=== PATIENT | male | born 1930 | race Caucasian/White ===

== ENCOUNTER → 2017-03-11 | Outpatient (CLI) | payer OTHER ==
[~2017-03-11] MED LIST: AML5T PO; BUSP10TA90 PO; CEPH500C PO; CLIN150C PO; CYCL1TAB18 PO; FLUO20CA19 PO; FURO40TA4 PO; GABA100C9 PO; GLIP-116 OR; GLIP-116 PO; LORA-622 PO; MELO1TAB73 OR; METF-370 PO; METR-103 PO; NOR7.5T PO; PRAV20TA3 PO; RANI-229 OR; RANI1TAB6 PO; TERA1CAP33 OR; TERA2CAP45 PO; TRAM50TA2 OR; WARF6TAB21 PO; WARF7.5T20 PO
== END | disposition home or self-care (01) ==
LOC: MERGE 15:06 → LAB 15:06
PROVIDERS: ATTEND Physician Assistant
DX: E11.21 Type 2 diabetes mellitus with diabetic nephropathy (principal)
CPT/HCPCS: 36415; 83036

== ENCOUNTER 2017-03-27 05:13 | Inpatient (IN) | payer OTHER ==
[~2017-03-27] VITALS: Ht 182.9 cm; Wt 130.7 kg
[~2017-03-27 05:13] MED LIST changes: -GABA100C9 PO; -GLIP-116 PO; -METF-370 PO; -RANI1TAB6 PO; -TERA2CAP45 PO; -WARF7.5T20 PO
[2017-03-27] MEDS ORDERED: IPRATROPIUM BROM 0.5 MG/2.5ML INH SOL NEB ONE (05:30)
[2017-03-27] MEDS ORDERED: methylPREDNISolone SOD SUCC 125 MG/2 ML VL IV ONE (05:30)
[2017-03-27] MEDS ORDERED: ALBUTEROL SULF 2.5 MG/0.5ML(0.5%) NEB SOLN NEB ONE (05:30)
[2017-03-27 05:52] LABS: Basophils # (auto) 0.1 uL; Basophils % (auto) 0.7 % (0.0-2.0); Eosinophils # (auto) 0.1 uL; Eosinophils % (auto) 1.4 % (0.0-7.0); Hemoglobin 11.6 g/dL (13.5-17.5); Lymphocytes # (auto) 2.6 uL; Lymphocytes % (auto) 25.6 % (10.0-50.0); Mean Corpuscular Hemoglobin 31.6 pg (28.0-32.0); Mean Corpuscular Hgb Conc. 33.2 g/dL (32.0-36.0); Monocytes # (auto) 1.1 uL; Monocytes % (auto) 11.1 % (0.0-12.0); Neutrophils # (auto) 6.3 uL; Neutrophils % (auto) 61.2 % (37.0-80.0); Nucleated Red Blood Cells % 0.1 %; Red Blood Cells 3.68 10^6/uL (4.5-5.90); Red Cell Distribution Width 15.1 % (11.8-14.3); White Blood Cell 10.2 10^3/uL (4.4-10.8)
[2017-03-27 06:19] LABS: BUN/Creatinine Ratio 16.4; Calcium 8.6 mg/dL (8.5-10.1); Potassium 4.6 mmol/L (3.5-5.1)
[2017-03-27 06:36] LABS: Bilirubin, Total 0.9 mg/dL (0.2-1.0); Total Protein 6.2 g/dL (6.4-8.2)
[2017-03-27] MEDS ORDERED: ENOXAPARIN SOD 100 MG/1 ML SYRINGE SC ONE (07:30)
[2017-03-27] MEDS ORDERED: FURO40TA4 PO (07:47)
[2017-03-27] MEDS ORDERED: AML5T PO (07:47)
[2017-03-27] MEDS ORDERED: TERA2CAP45 PO (07:47)
[2017-03-27] MEDS ORDERED: GABA100C9 PO ×2 (07:47)
[2017-03-27] MEDS ORDERED: BUSP10TA90 PO (07:47)
[2017-03-27] MEDS ORDERED: FLUO20CA19 PO (07:47)
[2017-03-27] MEDS ORDERED: WARF7.5T20 PO (07:47)
[2017-03-27] MEDS ORDERED: RANI1TAB6 PO (07:47)
[2017-03-27] MEDS ORDERED: PRAV20TA3 PO (07:47)
[2017-03-27] MEDS ORDERED: METF-370 PO (07:47)
[2017-03-27] MEDS ORDERED: GLIP-116 PO (07:47)
[2017-03-27] MEDS ORDERED: FUROSEMIDE 40 MG/4 ML VIAL IV ONE ×2 (08:15→10:45)
[2017-03-27 08:49] LABS: Platelet Count (auto) 138 10^3/uL (140-450)
[2017-03-27] MEDS ORDERED: PROMETHAZINE HCL 25 MG/ML 1ML IV PRN (10:15)
[2017-03-27] MEDS ORDERED: ACETAMINOPHEN 500 MG TAB PO PRN (10:15)
[2017-03-27] MEDS ORDERED: NITROGLYCERIN 0.4 MG SL TAB SL PRN (10:15)
[2017-03-27] MEDS ORDERED: DEXTROSE (50%) 50ML SYRG IV PRN (10:15)
[2017-03-27] MEDS ORDERED: MORPHINE SULFATE 4 MG/ML SYR/VIAL IV PRN (10:15)
[2017-03-27] MEDS ORDERED: LACTULOSE 20Gm/30ML SOLN PO PRN (10:15)
[2017-03-27] MEDS ORDERED: TEMAZEPAM 15 MG CAP PO PRN (10:15)
[2017-03-27] MEDS ORDERED: ALBUTEROL SULF 2.5 MG/0.5ML(0.5%) NEB SOLN NEB PRN (10:15)
[2017-03-27] MEDS ORDERED: LORazepam 0.5 MG TAB PO PRN (10:15)
[2017-03-27 10:34] VITALS: BP 126/76
[2017-03-27] MEDS ORDERED: PANTOPRAZOLE 40 MG TAB PO ONE (10:45)
[2017-03-27] MEDS ORDERED: GABAPENTIN 100 MG CAP PO ONE (10:45)
[2017-03-27] MEDS: glipiZIDE 5 MG TAB PO SCH ×4 (10:45→21:55)
[2017-03-27] MEDS ORDERED: ENALAPRIL MALEATE 2.5 MG TAB PO ONE (10:45)
[2017-03-27] MEDS ORDERED: FLUoxetine HCL 20 MG CAP PO ONE (10:45)
[2017-03-27] MEDS ORDERED: glipiZIDE 5 MG TAB PO ONE (10:45)
[2017-03-27] MEDS: TERAZOSIN HCL 1 MG CAP PO SCH (10:45)
[2017-03-27] MEDS ORDERED: busPIRone HCL 10 MG TAB PO ONE (10:45)
[2017-03-27] MEDS ORDERED: NITROGLYCERIN 0.2MG/HR TOPICAL PATCH TD ONE (10:45)
[2017-03-27 10:47] LABS: INR 1.04 (0.9-1.15); Prothrombin Time 11.3 sec (9.37-12.3)
[2017-03-27] MEDS ORDERED: LIDOCAINE 2%HCL (LOCAL ANESTH.) INJ 20ML MDV ONE (11:01)
[2017-03-27] MEDS ORDERED: IODIXANOL 320MG/ML 100ML BTL IV ONE ×2 (11:05→13:51)
[2017-03-27] MEDS: ASPirin 81 mg TAB PO ONE ×2 (11:08→11:19)
[2017-03-27] MEDS: CARVEDILOL 3.125 MG TAB PO ONE ×2 (11:13→11:19)
[2017-03-27] MEDS: InsuLIN REG 1unit/0.01ml Soln (100units/ml) SC SCH ×3 (11:30→22:00)
[2017-03-27] MEDS: ACCU-CHEK COMFORT CURVE STRIP VI SCH ×3 (11:39→22:01)
[2017-03-27 11:55] LABS: Urine Bacteria FEW /hpf (None Seen); Urine Blood Negative /uL (Negative); Urine Mucus FEW (None Seen); Urine Specific Gravity 1.024 (1.001-1.035); Urine WBC 2 /hpf (0 - 3)
[2017-03-27] MEDS ORDERED: ALBUTEROL SULF 2.5 MG/0.5ML(0.5%) NEB SOLN NEB SCH (12:00)
[2017-03-27] MEDS ORDERED: IPRATROPIUM BROM 0.5 MG/2.5ML INH SOL NEB SCH (12:00)
[2017-03-27] MEDS ORDERED: fentaNYL CITRATE 100 MCG/2 ML VL ONE ×2 (12:58→13:49)
[2017-03-27] MEDS ORDERED: ANGIOMAX 250 MG VIAL IV ONE ×2 (12:58→13:44)
[2017-03-27] MEDS ORDERED: MIDAZOLAM HCL 1MG/1ML-2 ML VIAL ONE ×2 (12:58→13:50)
[2017-03-27] MEDS ORDERED: SODIUM CHL 0.9% 50 ML ONE ×2 (12:58→13:44)
[2017-03-27] MEDS ORDERED: VERAPAMIL 2.5MG/ML INJ 2ML VIAL IV ONE (13:05)
[2017-03-27] MEDS ORDERED: HEPARIN SODIUM (PORCINE) 5000 UNITS/ML 1ML VIAL ONE (13:11)
[2017-03-27] MEDS ORDERED: IOHEXOL 350 MG/ML 100ML IJ ONE (13:25)
[2017-03-27] MEDS ORDERED: CLOPIDOGREL 300 MG TAB ONE (13:43)
[2017-03-27] MEDS ORDERED: CLOPIDOGREL BISULFATE 75 MG TAB PO ONE (14:45)
[2017-03-27 16:00] VITALS: BP 139/82
[2017-03-27 16:01] LABS: Prothrombin Time 101.4 sec (9.37-12.3)
[2017-03-27] MEDS: SODIUM CHLOR 0.9% PF (SALINE LOCK) 10ML VIAL IV SCH ×2 (16:19→22:00)
[2017-03-27 16:24] LABS: INR 9.1 (0.9-1.15)
[2017-03-27 16:25] LABS: Partial Thromboplastin Time 142.4 sec (22.64-33.71)
[2017-03-27] MEDS ORDERED: WARFARIN SODIUM 10 MG TAB PO ONE (17:00)
[2017-03-27] MEDS ORDERED: PHYTONADIONE ORAL Susp 10 mg/10ml PO ONE (17:30)
[2017-03-27 18:11] LABS: INR 2.57 (0.9-1.15); Prothrombin Time 28.3 sec (9.37-12.3)
[2017-03-27] MEDS: GABAPENTIN 100 MG CAP PO SCH (21:56)
[2017-03-27] MEDS: ATORVASTATIN 20 MG TAB PO SCH (21:56)
[2017-03-27] MEDS: busPIRone HCL 10 MG TAB PO SCH (21:57)
[2017-03-27] MEDS: CARVEDILOL 3.125 MG TAB PO SCH (21:58)
[2017-03-27 22:00] VITALS: BP 108/57
[2017-03-27] MEDS ORDERED: ENOXAPARIN SOD 40 MG/0.4 ML SYRINGE SC SCH (22:00)
[2017-03-28] MEDS: InsuLIN REG 1unit/0.01ml Soln (100units/ml) SC SCH ×5 (01:06→21:16)
[2017-03-28 05:00] VITALS: BP 95/54
[2017-03-28 05:53] LABS: Basophils # (auto) 0 uL; Basophils % (auto) 0.2 % (0.0-2.0); Eosinophils # (auto) 0 uL; Eosinophils % (auto) 0.1 % (0.0-7.0); Hematocrit 32.7 % (41.0-53.0); Hemoglobin 11.1 g/dL (13.5-17.5); Lymphocytes % (auto) 10.8 % (10.0-50.0); Mean Corpuscular Hemoglobin 31.4 pg (28.0-32.0); Mean Corpuscular Hgb Conc. 33.9 g/dL (32.0-36.0); Mean Corpuscular Volume 92.7 fL (80.0-100.0); Monocytes % (auto) 10.6 % (0.0-12.0); Neutrophils % (auto) 78.3 % (37.0-80.0); Nucleated Red Blood Cells % 0.1 %; Platelet Count (auto) 145 10^3/uL (140-450); Red Blood Cells 3.53 10^6/uL (4.5-5.90); Red Cell Distribution Width 15.1 % (11.8-14.3)
[2017-03-28 05:58] LABS: INR 1.13 (0.9-1.15); Partial Thromboplastin Time 35.1 sec (22.64-33.71); Prothrombin Time 12.3 sec (9.37-12.3)
[2017-03-28 06:30] LABS: BUN/Creatinine Ratio 21.9; Bilirubin, Total 0.6 mg/dL (0.2-1.0); Calcium 8.5 mg/dL (8.5-10.1); Potassium 4.4 mmol/L (3.5-5.1); Total Protein 6.5 g/dL (6.4-8.2)
[2017-03-28] MEDS: FUROSEMIDE 40 MG/4 ML VIAL IV SCH ×2 (06:50→17:35)
[2017-03-28] MEDS: SODIUM CHLOR 0.9% PF (SALINE LOCK) 10ML VIAL IV SCH ×3 (06:51→21:26)
[2017-03-28] MEDS: glipiZIDE 5 MG TAB PO SCH ×4 (06:52→21:25)
[2017-03-28] MEDS: ACCU-CHEK COMFORT CURVE STRIP VI SCH ×4 (06:52→21:09)
[2017-03-28 08:26] VITALS: BP 120/67
[2017-03-28] MEDS: POTASSIUM CHL 20 Meq TABLET PO SCH (09:27)
[2017-03-28] MEDS: TERAZOSIN HCL 1 MG CAP PO SCH (09:27)
[2017-03-28] MEDS: CLOPIDOGREL BISULFATE 75 MG TAB PO SCH (09:28)
[2017-03-28] MEDS: GABAPENTIN 100 MG CAP PO SCH ×2 (09:28→21:24)
[2017-03-28] MEDS: busPIRone HCL 10 MG TAB PO SCH ×2 (09:29→21:26)
[2017-03-28] MEDS: CARVEDILOL 3.125 MG TAB PO SCH ×2 (09:29→21:25)
[2017-03-28] MEDS: ENALAPRIL MALEATE 2.5 MG TAB PO SCH (09:29)
[2017-03-28] MEDS: FLUoxetine HCL 20 MG CAP PO SCH ×2 (09:30→21:27)
[2017-03-28] MEDS: PANTOPRAZOLE 40 MG TAB PO SCH (09:30)
[2017-03-28] MEDS: ENOXAPARIN SOD 40 MG/0.4 ML SYRINGE SC SCH ×2 (09:30→21:28)
[2017-03-28] MEDS: ASPirin 81 mg TAB PO SCH (09:30)
[2017-03-28] MEDS: NITROGLYCERIN 0.2MG/HR TOPICAL PATCH TD SCH (09:31)
[2017-03-28 12:58] VITALS: BP 113/62
[2017-03-28 16:50] VITALS: BP 103/58
[2017-03-28] MEDS: ATORVASTATIN 20 MG TAB PO SCH (21:26)
[2017-03-28 22:00] VITALS: BP 117/69
[2017-03-29 05:00] VITALS: BP 105/53
[2017-03-29] MEDS: InsuLIN REG 1unit/0.01ml Soln (100units/ml) SC SCH ×4 (06:17→22:00)
[2017-03-29] MEDS: ACCU-CHEK COMFORT CURVE STRIP VI SCH ×4 (06:17→22:13)
[2017-03-29] MEDS: SODIUM CHLOR 0.9% PF (SALINE LOCK) 10ML VIAL IV SCH ×3 (06:29→21:59)
[2017-03-29] MEDS: FUROSEMIDE 40 MG/4 ML VIAL IV SCH ×2 (06:29→17:54)
[2017-03-29] MEDS: glipiZIDE 5 MG TAB PO SCH ×4 (06:30→22:09)
[2017-03-29 08:39] VITALS: BP 123/66
[2017-03-29] MEDS: CLOPIDOGREL BISULFATE 75 MG TAB PO SCH (10:05)
[2017-03-29] MEDS: ASPirin 81 mg TAB PO SCH (10:05)
[2017-03-29] MEDS: PANTOPRAZOLE 40 MG TAB PO SCH (10:05)
[2017-03-29] MEDS: POTASSIUM CHL 20 Meq TABLET PO SCH (10:05)
[2017-03-29] MEDS: FLUoxetine HCL 20 MG CAP PO SCH ×2 (10:05→21:58)
[2017-03-29] MEDS: busPIRone HCL 10 MG TAB PO SCH ×2 (10:05→22:01)
[2017-03-29] MEDS: GABAPENTIN 100 MG CAP PO SCH ×2 (10:05→22:00)
[2017-03-29] MEDS: TERAZOSIN HCL 1 MG CAP PO SCH (10:06)
[2017-03-29] MEDS: CARVEDILOL 3.125 MG TAB PO SCH ×2 (10:07→22:09)
[2017-03-29] MEDS: ENOXAPARIN SOD 40 MG/0.4 ML SYRINGE SC SCH ×2 (10:07→22:03)
[2017-03-29] MEDS: ENALAPRIL MALEATE 2.5 MG TAB PO SCH (10:07)
[2017-03-29] MEDS: NITROGLYCERIN 0.2MG/HR TOPICAL PATCH TD SCH (10:08)
[2017-03-29 12:00] VITALS: BP 107/64
[2017-03-29 17:32] VITALS: BP 98/50
[2017-03-29] MEDS: ATORVASTATIN 20 MG TAB PO SCH (21:59)
[2017-03-29 22:00] VITALS: BP 111/50
[2017-03-30] MEDS: HYDROcodone-ACET 5/325MG TAB PO PRN ×3 (03:45→16:50)
[2017-03-30 05:00] VITALS: BP 111/57
[2017-03-30] MEDS: glipiZIDE 5 MG TAB PO SCH ×4 (06:00→23:05)
[2017-03-30] MEDS: FUROSEMIDE 40 MG/4 ML VIAL IV SCH ×2 (06:00→17:52)
[2017-03-30] MEDS: SODIUM CHLOR 0.9% PF (SALINE LOCK) 10ML VIAL IV SCH ×3 (06:48→22:58)
[2017-03-30] MEDS: InsuLIN REG 1unit/0.01ml Soln (100units/ml) SC SCH ×4 (06:48→23:00)
[2017-03-30] MEDS: ACCU-CHEK COMFORT CURVE STRIP VI SCH ×4 (06:49→22:58)
[2017-03-30 07:45] VITALS: BP 98/48
[2017-03-30] MEDS: NITROGLYCERIN 0.2MG/HR TOPICAL PATCH TD SCH (10:00)
[2017-03-30] MEDS: TERAZOSIN HCL 1 MG CAP PO SCH (10:00)
[2017-03-30 10:30] VITALS: BP 173/96
[2017-03-30] MEDS ORDERED: IOHEXOL 350 MG/ML 100ML IJ ONE (11:10)
[2017-03-30] MEDS ORDERED: LIDOCAINE 2%HCL (LOCAL ANESTH.) INJ 20ML MDV ONE (11:10)
[2017-03-30] MEDS ORDERED: fentaNYL CITRATE 100 MCG/2 ML VL ONE (11:34)
[2017-03-30] MEDS ORDERED: MIDAZOLAM HCL 1MG/1ML-2 ML VIAL ONE (11:34)
[2017-03-30] MEDS ORDERED: ANGIOMAX 250 MG VIAL IV ONE (11:34)
[2017-03-30] MEDS ORDERED: SODIUM CHL 0.9% 50 ML ONE (11:34)
[2017-03-30] MEDS ORDERED: VERAPAMIL 2.5MG/ML INJ 2ML VIAL IV ONE (11:35)
[2017-03-30] MEDS ORDERED: IODIXANOL 320MG/ML 100ML BTL IV ONE (11:41)
[2017-03-30] MEDS: CLOPIDOGREL BISULFATE 75 MG TAB PO SCH (12:44)
[2017-03-30] MEDS: ASPirin 81 mg TAB PO SCH (12:44)
[2017-03-30] MEDS: CARVEDILOL 3.125 MG TAB PO SCH ×2 (13:18→22:57)
[2017-03-30] MEDS: ENALAPRIL MALEATE 2.5 MG TAB PO SCH (13:18)
[2017-03-30] MEDS: MORPHINE SULFATE 4 MG/ML SYR/VIAL IV PRN (15:07)
[2017-03-30 15:50] VITALS: BP 137/68
[2017-03-30] MEDS: PANTOPRAZOLE 40 MG TAB PO SCH (16:44)
[2017-03-30] MEDS: busPIRone HCL 10 MG TAB PO SCH ×2 (16:44→22:57)
[2017-03-30] MEDS: POTASSIUM CHL 20 Meq TABLET PO SCH (16:44)
[2017-03-30] MEDS: GABAPENTIN 100 MG CAP PO SCH ×2 (16:44→22:56)
[2017-03-30] MEDS: FLUoxetine HCL 20 MG CAP PO SCH ×2 (16:44→22:58)
[2017-03-30 22:05] VITALS: BP 116/57
[2017-03-30] MEDS: ATORVASTATIN 20 MG TAB PO SCH (22:57)
[2017-03-31 04:50] VITALS: BP 124/64
[2017-03-31] MEDS: SODIUM CHLOR 0.9% PF (SALINE LOCK) 10ML VIAL IV SCH ×3 (06:10→21:18)
[2017-03-31] MEDS: glipiZIDE 5 MG TAB PO SCH ×4 (06:10→21:50)
[2017-03-31] MEDS: InsuLIN REG 1unit/0.01ml Soln (100units/ml) SC SCH ×4 (06:11→21:51)
[2017-03-31] MEDS: ACCU-CHEK COMFORT CURVE STRIP VI SCH ×4 (06:11→21:18)
[2017-03-31] MEDS: HYDROcodone-ACET 5/325MG TAB PO PRN ×3 (06:15→20:50)
[2017-03-31] MEDS: FUROSEMIDE 40 MG/4 ML VIAL IV SCH ×2 (06:15→09:33)
[2017-03-31] MEDS: MORPHINE SULFATE 4 MG/ML SYR/VIAL IV PRN ×3 (07:32→15:08)
[2017-03-31 08:07] VITALS: BP 123/61
[2017-03-31] MEDS: TERAZOSIN HCL 1 MG CAP PO SCH (09:34)
[2017-03-31] MEDS: GABAPENTIN 100 MG CAP PO SCH ×2 (09:34→21:51)
[2017-03-31] MEDS: CLOPIDOGREL BISULFATE 75 MG TAB PO SCH (09:34)
[2017-03-31] MEDS: ENALAPRIL MALEATE 2.5 MG TAB PO SCH (09:36)
[2017-03-31] MEDS: FLUoxetine HCL 20 MG CAP PO SCH ×2 (09:36→21:51)
[2017-03-31] MEDS: POTASSIUM CHL 20 Meq TABLET PO SCH (09:36)
[2017-03-31] MEDS: ASPirin 81 mg TAB PO SCH (09:36)
[2017-03-31] MEDS: busPIRone HCL 10 MG TAB PO SCH ×2 (09:36→21:50)
[2017-03-31] MEDS: CARVEDILOL 3.125 MG TAB PO SCH ×2 (09:36→21:34)
[2017-03-31] MEDS: PANTOPRAZOLE 40 MG TAB PO SCH (09:36)
[2017-03-31] MEDS: NITROGLYCERIN 0.2MG/HR TOPICAL PATCH TD SCH (09:37)
[2017-03-31 11:51] VITALS: BP 100/48
[2017-03-31] MEDS ORDERED: CARISOPRODOL 350 MG TAB PO PRN (13:15)
[2017-03-31 16:09] VITALS: BP 90/60
[2017-03-31] MEDS: ATORVASTATIN 20 MG TAB PO SCH (21:50)
[2017-03-31 21:55] VITALS: BP 109/65
[2017-04-01] MEDS: SODIUM CHLOR 0.9% PF (SALINE LOCK) 10ML VIAL IV SCH ×2 (04:58→14:00)
[2017-04-01 05:24] VITALS: BP 104/45
[2017-04-01] MEDS: FUROSEMIDE 40 MG/4 ML VIAL IV SCH (05:31)
[2017-04-01] MEDS: glipiZIDE 5 MG TAB PO SCH ×2 (06:00→12:00)
[2017-04-01] MEDS: InsuLIN REG 1unit/0.01ml Soln (100units/ml) SC SCH ×2 (06:08→12:49)
[2017-04-01] MEDS: ACCU-CHEK COMFORT CURVE STRIP VI SCH ×2 (06:08→12:49)
[2017-04-01 09:00] VITALS: BP 97/58
[2017-04-01] MEDS: POTASSIUM CHL 20 Meq TABLET PO SCH (09:16)
[2017-04-01] MEDS: ENALAPRIL MALEATE 2.5 MG TAB PO SCH (09:17)
[2017-04-01] MEDS: GABAPENTIN 100 MG CAP PO SCH (09:17)
[2017-04-01] MEDS: CLOPIDOGREL BISULFATE 75 MG TAB PO SCH (09:18)
[2017-04-01] MEDS: FLUoxetine HCL 20 MG CAP PO SCH (09:18)
[2017-04-01] MEDS: PANTOPRAZOLE 40 MG TAB PO SCH (09:18)
[2017-04-01] MEDS: TERAZOSIN HCL 1 MG CAP PO SCH (09:19)
[2017-04-01] MEDS: busPIRone HCL 10 MG TAB PO SCH (09:19)
[2017-04-01] MEDS: ASPirin 81 mg TAB PO SCH (09:19)
[2017-04-01] MEDS: CARVEDILOL 3.125 MG TAB PO SCH (09:20)
[2017-04-01] MEDS: NITROGLYCERIN 0.2MG/HR TOPICAL PATCH TD SCH (10:00)
[2017-04-01 12:00] VITALS: BP_SYST 122; BP_SYST 97; BP_DIAS 58; BP_DIAS 59
== END 2017-04-01 14:30 | disposition home health service (06) | DRG 246 ==
LOC: EDBD 05:13 → ER 05:15 → TELE 05:16 → MERGE 05:16 → TELE-EAST 16:00
PROVIDERS: ADMIT Internal Medicine; ATTEND Family Medicine
PROC: 5A09357 Assistance with Respiratory Ventilation, Less than 24 Consecutive Hours, Continuous Positive Airway Pressure (ICD-10-PCS; principal; 2017-03-27)
PROC: 027136Z Dilation of Coronary Artery, Two Arteries with Three Drug-eluting Intraluminal Devices, Percutaneous Approach (ICD-10-PCS; 2017-03-27)
PROC: 4A023N7 Measurement of Cardiac Sampling and Pressure, Left Heart, Percutaneous Approach (ICD-10-PCS; 2017-03-27)
PROC: B2111ZZ Fluoroscopy of Multiple Coronary Arteries using Low Osmolar Contrast (ICD-10-PCS; 2017-03-27)
PROC: B2151ZZ Fluoroscopy of Left Heart using Low Osmolar Contrast (ICD-10-PCS; 2017-03-27)
PROC: 027035Z Dilation of Coronary Artery, One Artery with Two Drug-eluting Intraluminal Devices, Percutaneous Approach (ICD-10-PCS; 2017-03-30)
DX: I21.4 Non-ST elevation (NSTEMI) myocardial infarction (principal); J96.00 Acute respiratory failure, unspecified whether with hypoxia or hypercapnia; I50.21 Acute systolic (congestive) heart failure; I13.0 Hypertensive heart and chronic kidney disease with heart failure and stage 1 through stage 4 chronic kidney disease, or unspecified chronic kidney disease; D63.8 Anemia in other chronic diseases classified elsewhere; E11.21 Type 2 diabetes mellitus with diabetic nephropathy; E11.22 Type 2 diabetes mellitus with diabetic chronic kidney disease; E11.42 Type 2 diabetes mellitus with diabetic polyneuropathy; E66.9 Obesity, unspecified; E78.00 Pure hypercholesterolemia, unspecified; F32.9 Major depressive disorder, single episode, unspecified; I25.10 Atherosclerotic heart disease of native coronary artery without angina pectoris; N18.9 Chronic kidney disease, unspecified; I08.0 Rheumatic disorders of both mitral and aortic valves; N40.0 Benign prostatic hyperplasia without lower urinary tract symptoms; Z79.01 Long term (current) use of anticoagulants; Z68.39 Body mass index [BMI] 39.0-39.9, adult; Z79.4 Long term (current) use of insulin; Z86.711 Personal history of pulmonary embolism; Z86.718 Personal history of other venous thrombosis and embolism; Z95.0 Presence of cardiac pacemaker; Z79.899 Other long term (current) drug therapy
CPT/HCPCS: 36415; 36600; 51702; 71045; 80053; 81001; 82550; 82805; 82962; 83036; 83880; 84443; 84484; 85025; 85379; 85610; 85652; 85730; 86141; 86850; 86870; 86900; 86901; 92928; 93005; 93306; 93458; 93970; 94640; 94660; 96361; 96374; 96375; 99152; 99153; C1874; C1887; J1815; J2250; Q9967

== ENCOUNTER → 2018-02-24 | Outpatient (CLI) | payer OTHER ==
[~2018-02-24] MED LIST changes: +GABA100C9 PO; +GLIP-116 PO; +METF-370 PO; +RANI1TAB6 PO; +TERA2CAP45 PO; +WARF7.5T20 PO
[2018-02-24 10:29] LABS: Basophils # (auto) 0 uL; Basophils % (auto) 0.4 % (0.0-2.0); Eosinophils # (auto) 0.2 uL; Eosinophils % (auto) 4.7 % (0.0-7.0); Hematocrit 38.2 % (41.0-53.0); Hemoglobin 12.8 g/dL (13.5-17.5); Lymphocytes % (auto) 19.2 % (10.0-50.0); Mean Corpuscular Hemoglobin 31.1 pg (28.0-32.0); Mean Corpuscular Hgb Conc. 33.4 g/dL (32.0-36.0); Mean Corpuscular Volume 93.1 fL (80.0-100.0); Monocytes # (auto) 0.5 uL; Monocytes % (auto) 9.7 % (0.0-12.0); Neutrophils # (auto) 3.4 uL; Platelet Count (auto) 146 10^3/uL (140-450); Red Cell Distribution Width 15.3 % (11.8-14.3); White Blood Cell 5.2 10^3/uL (4.4-10.8)
[2018-02-24 10:45] LABS: Urine Bacteria NONE SEEN /hpf (None Seen); Urine Blood TRACE /uL (Negative); Urine Mucus FEW (None Seen); Urine Specific Gravity 1.021 (1.001-1.035); Urine WBC <1 /hpf (0 - 3)
[2018-02-24 10:52] LABS: Potassium 4.8 mmol/L (3.5-5.1)
[2018-02-24 11:07] LABS: Albumin 3.5 g/dL (3.4-5.0); BUN/Creatinine Ratio 21.2; Bilirubin, Total 0.7 mg/dL (0.2-1.0); Calcium 9.3 mg/dL (8.5-10.1); Total Protein 6.9 g/dL (6.4-8.2)
== END | disposition home or self-care (01) ==
LOC: LAB 09:45
PROVIDERS: ATTEND Physician Assistant
CPT/HCPCS: 36415; 80053; 80061; 81001; 83036; 84153; 85025

== ENCOUNTER 2018-04-07 14:05 | Inpatient (IN) | payer OTHER ==
[~2018-04-07] VITALS: Ht 180.3 cm; Wt 131.3 kg
[2018-04-07] MEDS ORDERED: SODIUM CHLORIDE 0.9% 1,000 ML IV ONE (16:39)
[2018-04-07 16:54] LABS: Basophils # (auto) 0 uL; Basophils % (auto) 0.3 % (0.0-2.0); Eosinophils # (auto) 0.2 uL; Eosinophils % (auto) 3.3 % (0.0-7.0); Hematocrit 36.2 % (41.0-53.0); Hemoglobin 12.1 g/dL (13.5-17.5); Lymphocytes # (auto) 1.1 uL; Mean Corpuscular Hemoglobin 31.5 pg (28.0-32.0); Mean Corpuscular Hgb Conc. 33.4 g/dL (32.0-36.0); Mean Corpuscular Volume 94.4 fL (80.0-100.0); Monocytes # (auto) 0.7 uL; Monocytes % (auto) 13.8 % (0.0-12.0); Neutrophils # (auto) 3.3 uL; Neutrophils % (auto) 62.6 % (37.0-80.0); Nucleated Red Blood Cells % 0.1 %; Platelet Count (auto) 156 10^3/uL (140-450); Red Blood Cells 3.83 10^6/uL (4.5-5.90); Red Cell Distribution Width 15.3 % (11.8-14.3); White Blood Cell 5.4 10^3/uL (4.4-10.8)
[2018-04-07 17:09] LABS: Albumin 3.5 g/dL (3.4-5.0); Calcium 8.6 mg/dL (8.5-10.1); Magnesium 2.2 mg/dL (1.6-2.6); Potassium 4.7 mmol/L (3.5-5.1)
[2018-04-07 17:15] LABS: BUN/Creatinine Ratio 17.7; Bilirubin, Total 0.5 mg/dL (0.2-1.0); Total Protein 7.1 g/dL (6.4-8.2)
[2018-04-07 17:30] LABS: INR 2.11 (0.9-1.15); Partial Thromboplastin Time 36.4 sec (23.78-33.04); Prothrombin Time 21.6 sec (9.27-12.13)
[2018-04-07 17:53] LABS: Urine Bacteria NONE SEEN /hpf (None Seen); Urine Blood Negative /uL (Negative); Urine Specific Gravity 1.006 (1.001-1.035); Urine WBC 1 /hpf (0 - 3)
[2018-04-07] MEDS ORDERED: FUROSEMIDE 40 MG/4 ML VIAL IV ONE (19:15)
[2018-04-07] MEDS ORDERED: MORPHINE SULFATE 4 MG/ML SYR/VIAL IV PRN (19:15)
[2018-04-07] MEDS ORDERED: NITROGLYCERIN 0.4 MG SL TAB SL PRN (19:15)
[2018-04-07] MEDS ORDERED: PANTOPRAZOLE 40 MG/10 ML VIAL IV ONE (19:30)
[2018-04-07] MEDS: FLUoxetine HCL 20 MG CAP PO SCH (22:30)
[2018-04-07] MEDS: CYCLOBENZAPRINE HCL 10 MG TAB PO SCH (22:34)
[2018-04-08] VITALS (7 sets, daily range): BP systolic 95–145; BP diastolic 45–77
--- NOTE | 2018-04-08 01:30 | NUR ---
Telemetry admit from ER LAINEY CASNO admitted to Telemetry unit. Patient oriented by JAVIER EWING, primary RN, to unit, room, bed, and unit policies regarding patient care and visiting hours. Patient now on continuous telemetry monitoring, tele box #9; and telemetry reading on arrival to unit is SR in 90s with occ. multifocal PVCs. Patient placed on bedside oxygen at 2lpm, weighed by bedscale and encouraged to call if he needs something. All questions and concerns addressed, patient verbalized understanding. Dtr-in-law, Francine Elizabeth, with him through admission interview. HOB in Christian's position with bed low. Nurse call light attached to L HOB rail and place in pt's hands.
[2018-04-08 05:22] LABS: Basophils # (auto) 0 uL; Basophils % (auto) 0.3 % (0.0-2.0); Eosinophils # (auto) 0.1 uL; Eosinophils % (auto) 2.8 % (0.0-7.0); Hematocrit 34.6 % (41.0-53.0); Hemoglobin 11.6 g/dL (13.5-17.5); Lymphocytes # (auto) 0.8 uL; Mean Corpuscular Hemoglobin 31.4 pg (28.0-32.0); Mean Corpuscular Hgb Conc. 33.5 g/dL (32.0-36.0); Mean Corpuscular Volume 93.8 fL (80.0-100.0); Monocytes # (auto) 0.7 uL; Monocytes % (auto) 13.3 % (0.0-12.0); Neutrophils # (auto) 3.6 uL; Neutrophils % (auto) 68.6 % (37.0-80.0); Nucleated Red Blood Cells % 0.1 %; Platelet Count (auto) 144 10^3/uL (140-450); Red Blood Cells 3.68 10^6/uL (4.5-5.90); Red Cell Distribution Width 15.3 % (11.8-14.3); White Blood Cell 5.2 10^3/uL (4.4-10.8)
[2018-04-08 05:33] LABS: Potassium 4.2 mmol/L (3.5-5.1)
[2018-04-08 05:38] LABS: Calcium 8.7 mg/dL (8.5-10.1)
[2018-04-08 06:37] LABS: INR 2.23 (0.9-1.15); Prothrombin Time 22.8 sec (9.27-12.13)
[2018-04-08] MEDS: FUROSEMIDE 40 MG/4 ML VIAL IV SCH (09:35)
[2018-04-08] MEDS: FLUoxetine HCL 20 MG CAP PO SCH ×2 (09:36→23:02)
[2018-04-08] MEDS: CLOPIDOGREL BISULFATE 75 MG TAB PO SCH (09:36)
[2018-04-08] MEDS: TERAZOSIN HCL 1 MG CAP PO SCH (09:37)
[2018-04-08] MEDS: METOPROLOL SUCCINATE XL 50 MG TAB PO SCH (09:37)
[2018-04-08] MEDS: GABAPENTIN 100 MG CAP PO SCH (09:37)
[2018-04-08] MEDS: LOSARTAN POTASSIUM 25 MG TAB PO SCH (09:38)
[2018-04-08] MEDS: CYCLOBENZAPRINE HCL 10 MG TAB PO SCH ×2 (09:38→23:01)
[2018-04-08] MEDS: PRAVASTATIN SODIUM 20 MG TAB PO SCH (09:38)
[2018-04-08] MEDS ORDERED: amLODIPine BESYLATE 5 MG TAB PO SCH (10:00)
[2018-04-08] MEDS ORDERED: ASPirin 81 mg TAB PO SCH (10:00)
[2018-04-08] MEDS ORDERED: CLOP75TA41 PO (13:01)
--- NOTE | 2018-04-08 14:28 | NUR ---
DR. LOCKWOOD AT BEDSIDE FOR CARDIOLOGY CONSULT. DR. LE TO FOLLOW UP WITH PATIENT TOMORROW.
[2018-04-08] MEDS ORDERED: WARFARIN SODIUM 2.5 MG TAB PO ONE (17:00)
--- NOTE | 2018-04-08 19:35 | NUR ---
Opening shift Note Pt is resting in bed with eyes closed and resp rate is even and unlabored. No s/s of any distress noted. Will continue to monitor pt q1hr. Bed is low, wheels are locked, and call light is with in reach.
--- NOTE | 2018-04-08 23:00 | NUR ---
Pt is awake and alert and POC discussed with pt and pt verbalizes understanding. Pt reports that he feels restless and is asking for his FSBS to be checked. Accu check= 128. Pt HS meds given and pt encouraged to call with any questions or concerns.
[2018-04-09] VITALS (7 sets, daily range): BP systolic 108–133; BP diastolic 62–70
[2018-04-09 05:50] LABS: Basophils # (auto) 0 uL; Basophils % (auto) 0.2 % (0.0-2.0); Eosinophils # (auto) 0.2 uL; Eosinophils % (auto) 3.1 % (0.0-7.0); Hematocrit 34.1 % (41.0-53.0); Hemoglobin 11.6 g/dL (13.5-17.5); Lymphocytes # (auto) 0.9 uL; Lymphocytes % (auto) 15.3 % (10.0-50.0); Mean Corpuscular Hemoglobin 31.9 pg (28.0-32.0); Mean Corpuscular Hgb Conc. 33.9 g/dL (32.0-36.0); Mean Corpuscular Volume 94.2 fL (80.0-100.0); Monocytes # (auto) 0.8 uL; Monocytes % (auto) 13.4 % (0.0-12.0); Neutrophils # (auto) 4.1 uL; Platelet Count (auto) 140 10^3/uL (140-450); Red Blood Cells 3.62 10^6/uL (4.5-5.90); Red Cell Distribution Width 15.2 % (11.8-14.3)
[2018-04-09 06:04] LABS: INR 2.22 (0.9-1.15); Prothrombin Time 22.7 sec (9.27-12.13)
[2018-04-09 06:17] LABS: Calcium 8.5 mg/dL (8.5-10.1); Potassium 4.3 mmol/L (3.5-5.1)
[2018-04-09 06:21] LABS: BUN/Creatinine Ratio 22.1
--- NOTE | 2018-04-09 07:20 | NUR ---
Opening Shift Note Assumed care of patient, awake and alert. No S/S of distress/SOB or pain, receiving 2L O2 via n/c. HOB elevated semi-sue's, side-rails up x2 for safety with bed at lowest setting. Instructed on POC, call light on hand to call for assist PRN, will continue to monitor for changes Q1hr and PRN.
[2018-04-09] MEDS: CLOPIDOGREL BISULFATE 75 MG TAB PO SCH (09:06)
[2018-04-09] MEDS: PRAVASTATIN SODIUM 20 MG TAB PO SCH (09:06)
[2018-04-09] MEDS: FUROSEMIDE 40 MG/4 ML VIAL IV SCH (09:06)
[2018-04-09] MEDS: LOSARTAN POTASSIUM 25 MG TAB PO SCH (09:06)
[2018-04-09] MEDS: METOPROLOL SUCCINATE XL 50 MG TAB PO SCH (09:07)
[2018-04-09] MEDS: TERAZOSIN HCL 1 MG CAP PO SCH (09:07)
[2018-04-09] MEDS: CYCLOBENZAPRINE HCL 10 MG TAB PO SCH ×2 (09:07→23:02)
[2018-04-09] MEDS: GABAPENTIN 100 MG CAP PO SCH (09:08)
[2018-04-09] MEDS: FLUoxetine HCL 20 MG CAP PO SCH ×2 (09:08→23:02)
[2018-04-09] MEDS ORDERED: AZITHROMYCIN 500MG/ 250ML 250 ML IV ONE (13:30)
[2018-04-09] MEDS ORDERED: cefTRIAXone 1GM/50ML D5W 50 ML IV ONE (13:30)
[2018-04-09] MEDS ORDERED: WARFARIN SODIUM 2.5 MG TAB PO ONE (17:00)
[2018-04-09] MEDS: ALBUTEROL SULF 2.5 MG/0.5ML(0.5%) NEB SOLN NEB SCH (19:26)
[2018-04-09] MEDS: IPRATROPIUM BROM 0.5 MG/2.5ML INH SOL NEB SCH (19:26)
--- NOTE | 2018-04-09 19:50 | NUR ---
Opening Shift Note Assumed care of patient, awake and alert. No S/S of distress or pain. Discussed POC and patient verbalizes understanding. Will continue to monitor for changes Q1hr and PRN. Call light within reach and bed in the lowest position, pt instructed to call for assistance prn.
[2018-04-10] MEDS: ALBUTEROL SULF 2.5 MG/0.5ML(0.5%) NEB SOLN NEB SCH ×4 (00:03→18:05)
[2018-04-10] MEDS: IPRATROPIUM BROM 0.5 MG/2.5ML INH SOL NEB SCH ×4 (00:03→18:05)
--- NOTE | 2018-04-10 03:10 | NUR ---
Pt is c/o of bilat knee pain and rates pain 9/10. Pt states that he takes Ely 5/325mg at home for severe pain. Have applied warm packs to both knees and if no relief then Hospitalist will be called for pain med orders.
--- NOTE | 2018-04-10 04:15 | NUR ---
Pt reports that his knee pain is now 0/10.
[2018-04-10 05:00] VITALS: BP 110/58
[2018-04-10 07:12] LABS: Basophils # (auto) 0 uL; Basophils % (auto) 0.5 % (0.0-2.0); Eosinophils # (auto) 0.1 uL; Eosinophils % (auto) 2.3 % (0.0-7.0); Hematocrit 33.3 % (41.0-53.0); Hemoglobin 11.2 g/dL (13.5-17.5); Lymphocytes # (auto) 0.9 uL; Lymphocytes % (auto) 15.3 % (10.0-50.0); Mean Corpuscular Hemoglobin 31.7 pg (28.0-32.0); Mean Corpuscular Hgb Conc. 33.6 g/dL (32.0-36.0); Mean Corpuscular Volume 94.2 fL (80.0-100.0); Monocytes # (auto) 0.8 uL; Monocytes % (auto) 13.5 % (0.0-12.0); Neutrophils # (auto) 4.3 uL; Neutrophils % (auto) 68.4 % (37.0-80.0); Platelet Count (auto) 139 10^3/uL (140-450); Red Blood Cells 3.53 10^6/uL (4.5-5.90); White Blood Cell 6.2 10^3/uL (4.4-10.8)
[2018-04-10 07:21] LABS: INR 2.4 (0.9-1.15); Prothrombin Time 24.4 sec (9.27-12.13)
[2018-04-10 07:29] LABS: BUN/Creatinine Ratio 22.1; Calcium 8.6 mg/dL (8.5-10.1); Potassium 4.4 mmol/L (3.5-5.1)
[2018-04-10 08:00] VITALS: BP 117/66
--- NOTE | 2018-04-10 08:00 | NUR ---
ASSESSMENT NOTE PT IS ALERT ORIENTED X4, SITTING UP AT THE SIDE OF THE BED, PT IS TALL AND BIG, LARGE SOFT ABDOMEN NOTED, 3+ EDEMA NOTED ON BOTH LOWER EXTREMITIES, OXYGEN 2 L NC, PAIN 0/10, CALL LIGHT WITHIN REACH.
[2018-04-10] MEDS: FUROSEMIDE 40 MG/4 ML VIAL IV SCH (08:39)
[2018-04-10] MEDS: FLUoxetine HCL 20 MG CAP PO SCH ×2 (08:40→21:22)
[2018-04-10] MEDS: TERAZOSIN HCL 1 MG CAP PO SCH (08:40)
[2018-04-10] MEDS: CLOPIDOGREL BISULFATE 75 MG TAB PO SCH (08:40)
[2018-04-10] MEDS: LOSARTAN POTASSIUM 25 MG TAB PO SCH (08:41)
[2018-04-10] MEDS: METOPROLOL SUCCINATE XL 50 MG TAB PO SCH (08:41)
[2018-04-10] MEDS: PRAVASTATIN SODIUM 20 MG TAB PO SCH (08:41)
[2018-04-10] MEDS: CYCLOBENZAPRINE HCL 10 MG TAB PO SCH ×2 (08:41→21:22)
[2018-04-10 08:49] VITALS: BP 112/62
[2018-04-10] MEDS ORDERED: cefTRIAXone 1GM/50ML D5W 50 ML IV SCH (09:00)
[2018-04-10] MEDS ORDERED: AZITHROMYCIN 500MG/ 250ML 250 ML IV SCH (10:00)
--- NOTE | 2018-04-10 10:00 | NUR ---
FAMILY PT'S SON AND HIS DAUIGHTER IN LOW AT BED SIDE.
--- NOTE | 2018-04-10 10:30 | NUR ---
DR ODOM AT BED SIDE FOLLOWING UP ON PT, EDUCATED PT REGARDING FLUID RESTRICTION, DR ODOM WAS ALSO CONCERN ABOUT OT'S KIDNEY, OXYGEN SATURATION IN ROOM AIR AND HIS LIVING SITUATION, PT LIVES ALONE WITH 2 DOGS, AND HIS SON IS 2 MILES AWAY, PT COMPLAINED FROM ACHING KNEES, NEW ORDERS OBTAIN, PT SON AND HIS DAUGHTER IN LOW, ALL VERBALIS UNDERSTANDING.
[2018-04-10] MEDS ORDERED: DOCUSATE SOD 100 MG CAP PO ONE (11:15)
[2018-04-10] MEDS: GABAPENTIN 100 MG CAP PO SCH (11:44)
[2018-04-10] MEDS: HYDROcodone-ACET 5/325MG TAB PO PRN ×2 (11:45→21:40)
--- NOTE | 2018-04-10 12:30 | NUR ---
PT IS SITTING AT THE SIDE OF THE BED EATING DINNER, NO DISTRESS NOTED, CONTINUE MONITORING.
[2018-04-10 13:00] VITALS: BP 108/56
--- NOTE | 2018-04-10 13:00 | NUR ---
FAMILY PT'S FAMILY AT BED SIDE, CONTINUE MONITORING.
[2018-04-10 17:00] VITALS: BP 106/48
[2018-04-10] MEDS ORDERED: WARFARIN SODIUM 2 MG TAB PO ONE (17:00)
--- NOTE | 2018-04-10 18:20 | NUR ---
PT IS SITTING AT TH ESIDE OF THE BED, EATING DINNER, CONTINUE MONITORING.
--- NOTE | 2018-04-10 19:30 | NUR ---
Opening shift note Patient in bed sleeping with eyes closed, non responsive to verbal stimuli. Patient's respiration even and unlabored, no non verbal cues to pain noted and observed. Will continue to monitor.
[2018-04-10] MEDS: DOCUSATE SOD 100 MG CAP PO SCH (21:22)
[2018-04-10 21:59] VITALS: BP 144/83
[2018-04-11] MEDS: ALBUTEROL SULF 2.5 MG/0.5ML(0.5%) NEB SOLN NEB SCH ×5 (00:40→23:45)
[2018-04-11] MEDS: IPRATROPIUM BROM 0.5 MG/2.5ML INH SOL NEB SCH ×5 (00:40→23:45)
[2018-04-11 04:43] VITALS: BP 128/66
[2018-04-11 05:43] LABS: INR 2.44 (0.9-1.15); Prothrombin Time 24.8 sec (9.27-12.13)
[2018-04-11 05:49] LABS: BUN/Creatinine Ratio 26.6; Calcium 8.7 mg/dL (8.5-10.1); Potassium 4.4 mmol/L (3.5-5.1)
[2018-04-11 08:00] VITALS: BP 112/62
--- NOTE | 2018-04-11 08:00 | NUR ---
ASSESSMENT NOTE PT IS ALERT ORIENTED X4, SITTING AT THE SIDE OF THE BED, NO DISTRESS NOTED, PAIN 0/10, ABLE TO IDENTIFY HIS DEMANDS NEEDED, CALL LIGHT WITHIN REACH.
[2018-04-11 09:00] VITALS: BP 117/68
--- NOTE | 2018-04-11 09:00 | NUR ---
FAMILY PT'S DAUGHTER AND GRANDDAUGHTER AT BED SIDE.
--- NOTE | 2018-04-11 09:15 | NUR ---
PHYSICAL THERAPY AT BED SIDE ASSISTING PT TO USE HOME WALKER TO AMBULATE IN THE HALLWAYS, THEN BACK TO HIS ROOM, PT SAT DOWN, CONTINUE BREATHING FAST, 2 MINUTES LATER PT SAT ON ROOM AIR 93 TO 94 %, PT DAUGHTER AWARE AT BED SIDE.
[2018-04-11] MEDS ORDERED: MORPHINE SULFATE 4 MG/ML SYR/VIAL IV PRN (09:30)
[2018-04-11] MEDS: FUROSEMIDE 40 MG/4 ML VIAL IV SCH (09:31)
[2018-04-11] MEDS: CLOPIDOGREL BISULFATE 75 MG TAB PO SCH (09:31)
[2018-04-11] MEDS: DOCUSATE SOD 100 MG CAP PO SCH ×2 (09:31→21:17)
[2018-04-11] MEDS: PRAVASTATIN SODIUM 20 MG TAB PO SCH (09:31)
[2018-04-11] MEDS: TERAZOSIN HCL 1 MG CAP PO SCH (09:32)
[2018-04-11] MEDS: GABAPENTIN 100 MG CAP PO SCH (09:32)
[2018-04-11] MEDS: CYCLOBENZAPRINE HCL 10 MG TAB PO SCH ×2 (09:32→21:18)
[2018-04-11] MEDS: METOPROLOL SUCCINATE XL 50 MG TAB PO SCH (09:32)
[2018-04-11] MEDS: FLUoxetine HCL 20 MG CAP PO SCH ×2 (09:32→21:17)
[2018-04-11 13:00] VITALS: BP 118/61
--- NOTE | 2018-04-11 15:08 | NUR ---
Nutrition Assessment Notes please see attached link for complete assessment Est. Needs based on ABW (105 kg): 7991-5325 Kcal (17-20kcal/kgABW), 84-105 gms pro (0.8-1.0 gms/kgBW r/t elev RFT CKD). Will continue to monitor pertinent labs and reassess nutrient needs prn Addendum: 04/11/18 at [address] Amended: Links added.
[2018-04-11 17:00] VITALS: BP 148/72
[2018-04-11] MEDS ORDERED: WARFARIN SODIUM 2 MG TAB PO ONE (17:00)
--- NOTE | 2018-04-11 18:39 | NUR ---
PT IS SITTING UP EATING DINNER, CONTINUE MONITORING.
--- NOTE | 2018-04-11 19:30 | NUR ---
Opening shift note Patient in bathroom alert and oriented x 4, front wheel walker at pt's side. Pt verbally coherent able to make needs known. Patient's respiration even and unlabored. Pt denies pain and discomfort at this time. Plan of care will discuss with patient after bathroom use. Will continue to monitor.
--- NOTE | 2018-04-11 19:56 | NUR ---
Patient back in bed. Noted sob with moderate exertion. Plan of care discussed, patient verbalized understanding. All needs attended, will continue to monitor.
[2018-04-11] MEDS: HYDROcodone-ACET 5/325MG TAB PO PRN (21:21)
[2018-04-11 21:57] VITALS: BP 124/69
[2018-04-12 04:55] VITALS: BP 103/57
[2018-04-12] MEDS: ALBUTEROL SULF 2.5 MG/0.5ML(0.5%) NEB SOLN NEB SCH ×3 (05:59→18:48)
[2018-04-12] MEDS: IPRATROPIUM BROM 0.5 MG/2.5ML INH SOL NEB SCH ×3 (05:59→18:48)
[2018-04-12 06:45] LABS: INR 2.31 (0.9-1.15); Prothrombin Time 23.6 sec (9.27-12.13)
[2018-04-12 07:49] VITALS: BP 123/69
[2018-04-12] MEDS: CYCLOBENZAPRINE HCL 10 MG TAB PO SCH ×2 (10:41→21:06)
[2018-04-12] MEDS: CLOPIDOGREL BISULFATE 75 MG TAB PO SCH (10:41)
[2018-04-12] MEDS: PRAVASTATIN SODIUM 20 MG TAB PO SCH (10:41)
[2018-04-12] MEDS: DOCUSATE SOD 100 MG CAP PO SCH ×2 (10:41→21:06)
[2018-04-12] MEDS: FLUoxetine HCL 20 MG CAP PO SCH ×2 (10:42→21:07)
[2018-04-12] MEDS: TERAZOSIN HCL 1 MG CAP PO SCH (10:42)
[2018-04-12] MEDS: GABAPENTIN 100 MG CAP PO SCH (10:42)
[2018-04-12] MEDS: METOPROLOL SUCCINATE XL 50 MG TAB PO SCH (10:43)
[2018-04-12] MEDS: FUROSEMIDE 40 MG/4 ML VIAL IV SCH ×2 (10:43→17:32)
--- NOTE | 2018-04-12 11:06 | NUR ---
Respiratory note: PATIENT EVALUATED FOR ROOM AIR ABG FOR HOME O2. HE WAS TAKEN OFF OXYGEN AND AMBULATED BY NURSING FOR GREATER THAN 5MIN TIME AND REMAINED WITH SPO2 OF 96%. HE WAS LEFT OFF OXYGEN FOR 15 MORE MINUTES AND WHEN REASSESSED HIS SPO2 WAS 93%. NO INDICATION AT THIS TIME TO DRAW ROOM AIR ABG. DR. PALACIOS NOTIFIED BY VANDANA ANDERSON.
--- NOTE | 2018-04-12 11:11 | NUR ---
Pulse ox 92-93% on RA Patient ambulated on RA. Pulse ox immediately after ambulation was 96%. Patient rested for approximately 15 minutes. Reassessment pulse ox 92-93% on RA. Patient is SOB and unable to complete the full lap around the nursing station. Patient ambulated with personal rolling walker. Addendum: 04/12/18 at 1115 by Razia Orellana RN Notified Dr. Davison of pulse ox.
--- NOTE | 2018-04-12 11:31 | NUR ---
Pulse ox RA 94% with patient sitting on chair at bedside will notify Dr. Davison.
[2018-04-12 13:12] VITALS: BP 151/69
--- NOTE | 2018-04-12 13:24 | NUR ---
Phone call from family member This RN received phone call from a female stating she is the patient's niece. No password on patient's account. No update given.
--- NOTE | 2018-04-12 13:44 | NUR ---
Updated patient's [id number] with patient's verbal consent Patient's [id number], Francnie, requested this RN to call her with clarification regarding the ABG and the patient's status. The patient gave verbal consent to return the phone call and give Francine an update. All questions and concerns addressed.
[2018-04-12 15:55] VITALS: BP 151/69
--- NOTE | 2018-04-12 16:23 | NUR ---
Patient resting in bed with eyes closed respirations even and unlabored. Patient's personal walker at bedside. Call light within reach.
[2018-04-12 16:31] VITALS: BP 121/68
[2018-04-12] MEDS ORDERED: WARFARIN SODIUM 2.5 MG TAB PO ONE (17:00)
--- NOTE | 2018-04-12 17:15 | NUR ---
MD was at bedside - Dr. Marcos MEDRANO informed patient of scheduled stress test in the morning. Patient verbalized understanding.
--- NOTE | 2018-04-12 17:19 | NUR ---
IV removed/IV started IV removed to the LHA due to leaking. IV removed with clean technique with catheter intact. Dressing applied. 22G IV started with clean technique. IV secured. IV education provided to patient. Patient verbalized understanding. Attempted to obtain second IV access for scheduled stress test. IV attempt failed. Dressing applied.
--- NOTE | 2018-04-12 17:30 | NUR ---
Family at bedside Francine, patient's daughter, at bedside. Updated Francine on POC. Patient set up password.
--- NOTE | 2018-04-12 18:45 | NUR ---
End of shift patient resting in bed with even and unlabored respirations on RA. Fall precautions in place with bed in low locked position and x2 side rails up with call light within reach. Patient's personal rolling walker is at bedside. Will endorse care to RN.
--- NOTE | 2018-04-12 19:50 | NUR ---
OPENING SHIFT NOTE PATIENT IN BED ALERT AND ORIENTED X 4. PATIENT ON THE PHONE WITH FAMILY. PT'S RESPIRATION EVEN AND UNLABORED, DENIES PAIN AND DISCOMFORT AT THIS TIME. WILL DISCUSS PLAN OF CARE WHEN PATIENT DONE ON THE PHONE. WILL CONTINUE TO MONITOR.
[2018-04-12] MEDS: HYDROcodone-ACET 5/325MG TAB PO PRN (21:06)
[2018-04-12 22:09] VITALS: BP 117/67
[2018-04-13] MEDS: IPRATROPIUM BROM 0.5 MG/2.5ML INH SOL NEB SCH ×4 (00:14→17:54)
[2018-04-13] MEDS: ALBUTEROL SULF 2.5 MG/0.5ML(0.5%) NEB SOLN NEB SCH ×4 (00:14→17:54)
--- NOTE | 2018-04-13 01:56 | NUR ---
PATIENT FOR STRESS TEST TODAY. STARTED ANOTHER IV TO LEFT HAND 20 GAUGE WITH GOOD BLOOD RETURN X 1 ATTEMPT. PATIENT TOLERATED PROCEDURE WELL. WILL CONTINUE TO MONITOR.
--- NOTE | 2018-04-13 02:03 | NUR ---
PATIENT SEATED AT HIS FRONT WHEEL WALKER AT BEDSIDE UNABLE TO SLEEP. PER PATIENT, WILL WATCH TV FOR AWHILE. COMPLETE LINEN CHANGE DONE. WILL CONTINUE TO MONITOR.
[2018-04-13 04:15] LABS: Basophils # (auto) 0 uL; Basophils % (auto) 0.5 % (0.0-2.0); Eosinophils # (auto) 0.3 uL; Eosinophils % (auto) 6.2 % (0.0-7.0); Hematocrit 36.2 % (41.0-53.0); Hemoglobin 12.2 g/dL (13.5-17.5); Lymphocytes # (auto) 0.9 uL; Lymphocytes % (auto) 17.1 % (10.0-50.0); Mean Corpuscular Hemoglobin 31.7 pg (28.0-32.0); Mean Corpuscular Hgb Conc. 33.8 g/dL (32.0-36.0); Mean Corpuscular Volume 93.7 fL (80.0-100.0); Monocytes # (auto) 0.7 uL; Monocytes % (auto) 13.2 % (0.0-12.0); Neutrophils # (auto) 3.4 uL; Nucleated Red Blood Cells % 0.1 %; Platelet Count (auto) 167 10^3/uL (140-450); Red Blood Cells 3.86 10^6/uL (4.5-5.90); Red Cell Distribution Width 14.8 % (11.8-14.3); White Blood Cell 5.4 10^3/uL (4.4-10.8)
[2018-04-13 04:34] LABS: INR 2.6 (0.9-1.15); Prothrombin Time 26.4 sec (9.27-12.13)
[2018-04-13 04:35] LABS: Potassium 4.6 mmol/L (3.5-5.1)
[2018-04-13 05:19] VITALS: BP 108/47
--- NOTE | 2018-04-13 05:25 | NUR ---
Respiratory note: PT WAS FOUND ON RA WITH A POX IN THE MID 80'S. PT GIVEN MED NEB TX AND PLACED ON 2 L NC. SPO2 NOW 95%. RN AT BEDSIDE.
[2018-04-13] MEDS: FUROSEMIDE 40 MG/4 ML VIAL IV SCH ×2 (05:32→17:33)
--- NOTE | 2018-04-13 07:15 | NUR ---
Morning note patient sitting at side of bed with both feet dangling. Instructed patient on POC, fall precautions and to call for assistance as needed. Patient verbalized understanding. Fall precautions in place with call light within reach. Patient's personal rolling walker is at bedside. Instructed patient to remain NPO except water for scheduled stress test. Patient verbalized understanding. Will continue to monitor q1hr & PRN.
[2018-04-13 07:55] VITALS: BP 134/72
[2018-04-13] MEDS ORDERED: ADENOSINE 111 MG in GIVE UN-DILUTED 0 ML IV STA (08:33)
--- NOTE | 2018-04-13 08:45 | NUR ---
Patient off unit at this time. Addendum: 04/13/18 at 0919 by Razia Orellana RN Amended: Links added.
--- NOTE | 2018-04-13 08:55 | NUR ---
Notified MD of pulse ox reported during the shift coordinator Notified Dr. Davison. MD verbalized understanding. MD requested RN print pulse ox documentation. RN did as requested. Documentation given to Dr. Davison.
--- NOTE | 2018-04-13 08:55 | NUR ---
Patient off unit to nuclear medicine via wheelchair.
--- NOTE | 2018-04-13 08:57 | NUR ---
Notified telemonitor tech patient will be off telemonitor due to being at stress test. Tech verbalized understanding.
[2018-04-13 09:22] VITALS: BP 121/68
--- NOTE | 2018-04-13 09:32 | NUR ---
assessment Patient is a 87 year old male who is alert and oriented. Patients cognitive abilities are intact. Prior to admission patient lived home alone and functioned with assistance. Per patient he will return home to his prior living arrangements post discharge and family will transport him home. Patient functions with the help of his caregiver that comes in 3 times per week. Patient informed me that is sufficient for him. Patient has a rollator for home use and a fww he keeps in his car. Patients PCP is Neris Wilson. Patient has no post discharge needs at this time. I informed patient he has a right to speak to a geriatric social worker regarding all care. I informed patient he has a right to participate in any and all discharge planning. Patient is aware of visiting hours on the hospital floor. I informed patient he has a right to privacy. Patient does not have a POA and advanced directive. I have offered patient information on POA and advanced directives. I informed the patient the advantages and benefits of having an Advanced Directive. Patient verbalized understanding and agreed to discharge plan. per consult regarding patients caregiver and is a diabetic and CHF. Patients living situation is sufficient. Addendum: 04/14/18 at 0942 by Nella Fang Amended: Links added.
--- NOTE | 2018-04-13 10:00 | NUR ---
RE: Scheduled medications Patient off unit at this time. Will administer scheduled medications once patient returns to the unit.
--- NOTE | 2018-04-13 11:05 | NUR ---
Patient back on unit; RE: supplemental oxygen removed patient noted to be sitting on the bed with both feet dangling. Will administer scheduled medications as ordered. RE: supplemental oxygen- patient removed from supplemental oxygen to monitor pulse ox on RA in evaluation for home oxygen per Dr. Davison's verbal order. Patient educated on s/s of respiratory distress and instructed to notify staff immediately with any s/s of respiratory distress. Patient verbalized understanding.
[2018-04-13] MEDS: CLOPIDOGREL BISULFATE 75 MG TAB PO SCH (11:14)
[2018-04-13] MEDS: GABAPENTIN 100 MG CAP PO SCH (11:14)
[2018-04-13] MEDS: FLUoxetine HCL 20 MG CAP PO SCH ×2 (11:14→21:58)
[2018-04-13] MEDS: PRAVASTATIN SODIUM 20 MG TAB PO SCH (11:14)
[2018-04-13] MEDS: TERAZOSIN HCL 1 MG CAP PO SCH (11:15)
[2018-04-13] MEDS: METOPROLOL SUCCINATE XL 50 MG TAB PO SCH (11:15)
[2018-04-13] MEDS: CYCLOBENZAPRINE HCL 10 MG TAB PO SCH ×2 (11:15→21:59)
[2018-04-13] MEDS: DOCUSATE SOD 100 MG CAP PO SCH ×2 (11:19→21:59)
[2018-04-13 11:49] VITALS: BP 135/79
--- NOTE | 2018-04-13 13:35 | NUR ---
Patient ambulated to the restroom with personal rolling walker. Patient ambulated on RA. Minimal SOB noted when patient returned to the bed. Will assess pulse ox.
--- NOTE | 2018-04-13 13:43 | NUR ---
at bedside - Dr. Davison.
--- NOTE | 2018-04-13 15:06 | NUR ---
Respiratory note: ROOM AIR ABG DRAWN ON PT TO QUALIFY FOR HOME O2. POX READ 87 AT TIME OF ABG DRAW. RESULTS ARE FOLLOWS: PH 7.45 PCO2 35.1 PAO2 65.1 HCO3 23.8 BE 0.2 RESULTS WILL BE REPORTED DIRECTLY TO VANDANA ANDERSON
--- NOTE | 2018-04-13 15:15 | NUR ---
notified of ABG results Dr. Davison verbalized understanding.
[2018-04-13 16:40] VITALS: BP 134/71
[2018-04-13] MEDS ORDERED: WARFARIN SODIUM 2 MG TAB PO ONE (17:00)
--- NOTE | 2018-04-13 18:50 | NUR ---
End of shift patient sitting in chair at bedside with even and unlabored respirations on RA. Fall precautions in place with bed in low locked position and x2 side rails up with call light within reach. Patient's personal rolling walker is at bedside. Will endorse care to RN. RE: will endorse to RN that if patient's pulse ox goes below 86% on RA, an ABG is to be taken to evaluate for home oxygen per Dr. Davison. Day shift RT has been notified.
--- NOTE | 2018-04-13 19:40 | NUR ---
Opening Shift Note Assumed care of patient, awake and alert. No S/S of distress/SOB or pain. Instructed on POC and to call for assist PRN. Bed in lowest locked position, call light within reach, side rails up x2. Will continue to monitor for changes Q1hr and PRN.
[2018-04-13 22:00] VITALS: BP 113/66
[2018-04-14] MEDS: ALBUTEROL SULF 2.5 MG/0.5ML(0.5%) NEB SOLN NEB SCH ×2 (00:09→06:18)
[2018-04-14] MEDS: IPRATROPIUM BROM 0.5 MG/2.5ML INH SOL NEB SCH ×2 (00:09→06:17)
[2018-04-14 04:30] LABS: Basophils # (auto) 0 uL; Basophils % (auto) 0.6 % (0.0-2.0); Eosinophils # (auto) 0.3 uL; Eosinophils % (auto) 4.8 % (0.0-7.0); Hemoglobin 11.2 g/dL (13.5-17.5); Lymphocytes # (auto) 0.9 uL; Lymphocytes % (auto) 15.3 % (10.0-50.0); Mean Corpuscular Hemoglobin 30.7 pg (28.0-32.0); Mean Corpuscular Hgb Conc. 32.9 g/dL (32.0-36.0); Mean Corpuscular Volume 93.2 fL (80.0-100.0); Monocytes # (auto) 0.8 uL; Neutrophils # (auto) 3.7 uL; Neutrophils % (auto) 65.3 % (37.0-80.0); Nucleated Red Blood Cells % 0.1 %; Platelet Count (auto) 174 10^3/uL (140-450); Red Blood Cells 3.65 10^6/uL (4.5-5.90); Red Cell Distribution Width 14.8 % (11.8-14.3); White Blood Cell 5.6 10^3/uL (4.4-10.8)
[2018-04-14 04:50] LABS: INR 2.87 (0.9-1.15); Prothrombin Time 28.9 sec (9.27-12.13)
[2018-04-14 04:52] VITALS: BP 122/67
[2018-04-14] MEDS: FUROSEMIDE 40 MG/4 ML VIAL IV SCH (05:59)
--- NOTE | 2018-04-14 07:25 | NUR ---
Patient sitting in bed, awake, oriented x4. No acute distress noted. O2 Sat = 91% on room air.
--- NOTE | 2018-04-14 07:25 | NUR ---
Dry scabs, scaly, discoloration of skin on bilateral lower extremities, no open wounds noted.
--- NOTE | 2018-04-14 08:00 | NUR ---
Urine output = 900 ml. Clear, modesto urine noted.
--- NOTE | 2018-04-14 08:10 | NUR ---
[id number]-du-qbw Francine ([phone]; Password: "[email or web address]") called.
[2018-04-14 09:20] VITALS: BP 135/64
[2018-04-14] MEDS ORDERED: WARF2TAB55 PO (09:33)
[2018-04-14] MEDS ORDERED: MET5XLT PO (09:33)
--- NOTE | 2018-04-14 10:00 | NUR ---
O2 Sat = 92% to 96% on room air. Dr. Davison to discharge the patient today.
[2018-04-14] MEDS ORDERED: GLIP-115 PO (10:08)
--- NOTE | 2018-04-14 10:08 | NUR ---
Dr. Davison to call patient's [id number]
[2018-04-14] MEDS: FLUoxetine HCL 20 MG CAP PO SCH (10:14)
[2018-04-14] MEDS: TERAZOSIN HCL 1 MG CAP PO SCH (10:14)
[2018-04-14] MEDS: DOCUSATE SOD 100 MG CAP PO SCH (10:14)
[2018-04-14] MEDS: CYCLOBENZAPRINE HCL 10 MG TAB PO SCH (10:14)
[2018-04-14] MEDS: GABAPENTIN 100 MG CAP PO SCH (10:14)
[2018-04-14] MEDS: PRAVASTATIN SODIUM 20 MG TAB PO SCH (10:14)
[2018-04-14] MEDS: CLOPIDOGREL BISULFATE 75 MG TAB PO SCH (10:14)
[2018-04-14] MEDS: METOPROLOL SUCCINATE XL 50 MG TAB PO SCH (10:15)
--- NOTE | 2018-04-14 10:30 | NUR ---
Dr. Davison called back that she called Francine three times but no answer.
[2018-04-14 11:04] VITALS: BP 135/64
--- NOTE | 2018-04-14 11:28 | NUR ---
[id number]-gwh Francine called back. Francine made aware that Dr. Davison called her three times but she's not answering her phone. Francine made aware patient is for discharge home today. Francine said her son will crab picker the patient today.
--- NOTE | 2018-04-14 11:58 | NUR ---
Photos taken of bilateral lower extremities, no open wounds, hyperpigmentation, scaly skin, scabs noted. Wound Care form placed on the Wound Care tray. Camera returned to Mack.
--- NOTE | 2018-04-14 12:00 | NUR ---
Prescription refill picked up by radha at the [facility].
--- NOTE | 2018-04-14 12:20 | NUR ---
Discharge instructions given as ordered. Encourage to follow up with PMD as instructed. All questions and concerns addressed. Patient verbalized understanding. Medication reconciliation form completed and copy given to patient. IV removed with catheter intact, pressure dressing applied. Telemetry unit returned to [facility]. Patient taken to vehicle via wheelchair with all personal belongings, accompanied by staff and family member. No distress noted at time of departure.
--- NOTE | 2018-04-14 12:44 | NUR ---
Found the discharge papers at the bedside table. Patient left with grandson. Will call [id number].
--- NOTE | 2018-04-14 12:45 | NUR ---
Called [id number] Francine ([phone]) that patient left the discharge papers at the bedside table. Francine said her son will come over to picker machine operator the discharge papers at the Nurse Station.
[2018-04-14] MEDS ORDERED: WARFARIN SODIUM 5 MG TAB PO ONE (17:00)
[2018-04-14] MEDS ORDERED: WARFARIN SODIUM 2 MG TAB PO ONE (17:00)
== END 2018-04-14 12:20 | disposition home or self-care (01) | DRG 291 ==
LOC: ER 14:05 → TELE 19:18 → TELE-EAST 23:13
PROVIDERS: ADMIT Nurse Practitioner Acute Care; ATTEND Internal Medicine
DX: I13.0 Hypertensive heart and chronic kidney disease with heart failure and stage 1 through stage 4 chronic kidney disease, or unspecified chronic kidney disease (principal); I50.43 Acute on chronic combined systolic (congestive) and diastolic (congestive) heart failure; J96.00 Acute respiratory failure, unspecified whether with hypoxia or hypercapnia; I42.9 Cardiomyopathy, unspecified; E11.21 Type 2 diabetes mellitus with diabetic nephropathy; E66.9 Obesity, unspecified; E11.22 Type 2 diabetes mellitus with diabetic chronic kidney disease; D64.9 Anemia, unspecified; E78.5 Hyperlipidemia, unspecified; I25.10 Atherosclerotic heart disease of native coronary artery without angina pectoris; K21.9 Gastro-esophageal reflux disease without esophagitis; K27.9 Peptic ulcer, site unspecified, unspecified as acute or chronic, without hemorrhage or perforation; N18.3 Chronic kidney disease, stage 3 (moderate); N40.0 Benign prostatic hyperplasia without lower urinary tract symptoms; T45.515A Adverse effect of anticoagulants, initial encounter; Y92.89 Other specified places as the place of occurrence of the external cause; Z79.01 Long term (current) use of anticoagulants; Z79.84 Long term (current) use of oral hypoglycemic drugs; Z80.1 Family history of malignant neoplasm of trachea, bronchus and lung; Z80.3 Family history of malignant neoplasm of breast; Z80.42 Family history of malignant neoplasm of prostate; Z80.8 Family history of malignant neoplasm of other organs or systems; Z81.8 Family history of other mental and behavioral disorders; Z82.0 Family history of epilepsy and other diseases of the nervous system; Z82.3 Family history of stroke; Z82.49 Family history of ischemic heart disease and other diseases of the circulatory system; Z82.5 Family history of asthma and other chronic lower respiratory diseases; Z82.62 Family history of osteoporosis; Z83.3 Family history of diabetes mellitus; Z86.718 Personal history of other venous thrombosis and embolism; Z95.0 Presence of cardiac pacemaker; Z95.5 Presence of coronary angioplasty implant and graft; F41.9 Anxiety disorder, unspecified; G62.9 Polyneuropathy, unspecified; G89.29 Other chronic pain; M54.5 Low back pain; Z79.899 Other long term (current) drug therapy
CPT/HCPCS: 36415; 36600; 71045; 71046; 78452; 80048; 80053; 81001; 82805; 82962; 83735; 83880; 84443; 84484; 85025; 85379; 85610; 85730; 87081; 93005; 93017; 93306; 93886; 94640; 94761; 96360; 97116; 97530; C9113; G0378; J0153; J0696